=== PATIENT | male | born 1955 | race Caucasian/White ===

== ENCOUNTER → 2020-06-01 15:55 | Outpatient (CLI) | payer OTHER, SELFPAY ==
--- NOTE | ~2020-06-01 | XR_ITS ---
EXAMINATION: XR knee RT 3V DATE: 06/01/2020 17:08 INDICATION: Right knee pain. TECHNIQUE: 3 views of right knee were obtained. COMPARISON: None. FINDINGS: Bone alignment is normal. No fracture. There is mild tricompartmental osteoarthritis. There is a small knee joint effusion. A 2.6 cm curvilinear density overlies the soft tissues medial to the tibia. IMPRESSION: 1. Mild right knee osteoarthritis. 2. Small right knee joint effusion. 3. Curvilinear foreign body overlying the soft tissues medial to the tibia. Reviewed, dictated and finalized at location A. [employer]
== END ==
PROVIDERS: PCP Family Medicine; Visit Provider Physician Assistant
DX: M17.11 Unilateral primary osteoarthritis, right knee (principal); M25.461 Effusion, right knee
CPT/HCPCS: 73562

== ENCOUNTER → 2020-07-30 15:26 | Outpatient (CLI) | payer OTHER, SELFPAY ==
--- NOTE | ~2020-07-30 | MR_ITS ---
EXAMINATION: MR knee RT wo con DATE: 07/30/2020 16:09 INDICATION: Right knee pain. TECHNIQUE: Magnetic resonance imaging (MRI) of the right knee was performed without intravenous contr ast. Sequences included coronal and sagittal PD-weighted FSE and coronal, sagittal, and axial STIR FS E. COMPARISON: Right knee radiographs 06/01/2020 FINDINGS: Medial compartment: There is a radial tear of posterior root of medial meniscus. There is extensive full-thickness cartil age loss of femoral condyle involving the central, medial, lateral, and posterior articular surface w ith cortical remodeling and moderate subchondral edema-like marrow signal intensity. There is full-th ickness cartilage loss of tibial condyle involving the central and medial articular surface with subc hondral insufficiency fracture with low signal fracture line and surrounding bone marrow edema-like s ignal intensity. Marginal osteophytes are noted. Lateral compartment: Lateral meniscus is normal. There is deep cartilage fissuring of tibial condyle involving the medial articular surface with cartilage undermining. There is shallow partial-thickness cartilage loss of th e tibial central articular surface and posterior articular surface. The femoral condyle demonstrates deep partial thickness cartilage loss medially. Marginal osteophytes are noted. Patellofemoral compartment: There is full-thickness cartilage loss of patellar medial facet with mild subchondral edema-like aisha ow signal intensity. There is deep partial thickness cartilage loss of patellar lateral facet. There is deep partial thickness cartilage loss of central trochlea. Osteophytes are noted. Ligaments and tendons: The anterior and posterior cruciate ligaments are normal. Medial collateral ligament and lateral olegario ateral ligament complex are intact. There is mild patellar tendinopathy. Fluid: There is a large knee joint effusion. There is trace fluid in a Brennan's cyst. There is mild prepatell ar and superficial infrapatellar bursitis. IMPRESSION: 1. Subchondral insufficiency fracture of medial tibial condyle. 2. Severe chondrosis of medial and patellofemoral compartments and moderate chondrosis of lateral com partment. 3. Tear of medial meniscus. 4. Large knee joint effusion. Reviewed, dictated and finalized at location A. IMPRESSION: 1. Subchondral insufficiency fracture of medial tibial condyle. 2. Severe chondrosis of medial and patellofemoral compartments and moderate cho ndrosis of lateral compartment. 3. Tear of medial meniscus. 4. Large knee joint effusion.
== END ==
PROVIDERS: PCP Family Medicine; Visit Provider Orthopaedic Surgery
DX: S83.241D Other tear of medial meniscus, current injury, right knee, subsequent encounter (principal); X58.XXXD Exposure to other specified factors, subsequent encounter; M25.462 Effusion, left knee
CPT/HCPCS: 73721

== ENCOUNTER 2020-09-14 09:50 | Outpatient (CLI) | payer OTHER, SELFPAY ==
--- NOTE | 2020-09-14 10:36 | ECG_ITS ---
Measurements Intervals [place] Rate: 75 P: 8 SC: 206 QRS: 23 QRSD: 88 T: 31 QT: 371 QTc: 415 Interpretive Statements SINUS RHYTHM BASELINE ARTIFACT- I, III NORMAL ECG Electronically Signed On 09-14-2020 12:06:36 CDT by Codey Olivia D.O.
[2020-09-14 11:04] LABS: Basophils Percent Auto 0.4 % (0.2-1.2); Eosinophils Absolute Auto 0.8 K/mm3 (0-0.3); Eosinophils Percent Auto 7.5 % (0-4.4); Hematocrit 42.8 % (42.0-52.0); Hemoglobin 14.3 g/dL (14.0-18.0); Immature Granulocyte Absolute 0.04 K/mm3 (0.00-0.031); Immature Granulocyte Percent A 0.4 % (0-0.5); Lymphocytes Absolute Auto 2.34 K/mm3 (0.9-3.2); Lymphocytes Percent Auto 23.1 % (18.3-44.2); Mean Corpuscular HGB Conc 33.4 g/dl (32-36); Mean Corpuscular Hemoglobin 29.7 pg (26-34); Mean Platelet Volume 9.4 fl (7.4-10.4); Monocytes Percent Auto 9.9 % (2.6-8.5); Neutrophils Percent Auto 58.7 % (45.5-73.1); Platelet Count Result 187 k/mm3 (150-375); Red Blood Count 4.81 M/mm3 (4.6-6.20); Red Cell Distribution Width 12.5 % (11.5-14.5); White Blood Count 10.2 K/mm3 (4.5-10.0)
[2020-09-14 11:13] LABS: Albumin Level 4.3 g/dL (3.5-5.1); Estimated Glomerular Filt Rate > 60; Glucose 100 mg/dL (75-110); Hemoglobin A1C 5.8 % (<5.7)
[2020-09-14 11:15] LABS: Urine Cotinine NEGATIVE
== END 2020-09-14 09:51 | disposition home or self-care (01) ==
LOC: ANHSURGERY 09:54
PROVIDERS: PCP Family Medicine; Visit Provider Orthopaedic Surgery
DX: M17.11 Unilateral primary osteoarthritis, right knee (principal); Z01.818 Encounter for other preprocedural examination
CPT/HCPCS: 80307; 82040; 82565; 82947; 83036; 85025; 86850; 86900; 86901; 87081; 93005

== ENCOUNTER → 2020-09-24 04:42 | Outpatient (CLI) | payer OTHER, SELFPAY ==
[2020-09-24 18:46] LABS: SARS-CoV-2 RNA PCR Negative
== END ==
PROVIDERS: Physician Assistant; PCP Family Medicine; Visit Provider Orthopaedic Surgery
DX: R09.81 Nasal congestion (principal); Z20.822 Contact with and (suspected) exposure to COVID-19
CPT/HCPCS: C9803; U0003; U0005

== ENCOUNTER 2020-09-27 01:10 | Day surgery (SDC) | payer OTHER, SELFPAY ==
[2020-09-14 10:15] VITALS: BP 132/70; PULSE 76; RESP 20; TEMP 36.8; O2SAT 98; BMI 36.3
--- NOTE | 2020-09-24 15:59 | WPDANESEPPF ---
Anes - Initial Pre Proc Eval Procedure: Operation Date: 09/27/20 07:30 Proposed Procedures p Right Total Knee Arthroplasty - Patrick Perez MD Date/Time: 09/24/20 15:59 Surgeon: Patrick Perez MD Pre Op Diagnosis: right knee OA Patient Data Age: 64 Gender: M Height: 1.89 m Weight: 130.2 kg Last Vital Signs Temp 36.8 C 09/14/20 10:15 Pulse 76 09/14/20 10:15 Resp 20 09/14/20 10:15 BP 132/70 09/14/20 10:15 Pulse Ox 98 09/14/20 10:15 Allergies Allergy/AdvReac Type Severity Reaction Status Date / Time No Known Allergies Allergy Mild Verified 09/27/20 06:35 Home Medications Medication Instructions Recorded Confirmed Type atorvastatin 20 mg tablet 10 mg PO HS tablet 09/09/19 09/27/20 History ibuprofen 800 mg tablet 800 mg PO TID #90 tablet 07/21/20 09/27/20 Rx acetaminophen [Tylenol Extended 650 mg PO HS 09/14/20 09/27/20 History Release] gabapentin 300 mg QAM 09/14/20 09/27/20 History gabapentin 600 mg PO HS 09/14/20 09/27/20 History tamsulosin [Flomax] 0.4 mg PO HS 09/14/20 09/27/20 History rivaroxaban 10 mg tablet 10 mg PO DAILY #14 tablet 09/16/20 Rx tramadol 50 mg tablet 50 mg PO Q4H PRN #30 tablet 09/20/20 09/20/20 Rx ECG: Date of Service: 09/14/20 Procedure(s): CA 12 lead EKG Accession Number(s): [id number] cc: ~ Measurements Intervals [place] Rate: 75 P: 8 [place]: 206 QRS: 23 QRSD: 88 T: 31 QT: 371 QTc: 415 Interpretive Statements SINUS RHYTHM BASELINE ARTIFACT- I, III NORMAL ECG Electronically Signed On 09-14-2020 12:06:36 CDT by Codey Olivia D.O. Dictated By: Codey Olivia DO 09/14/20 1206 Patient hx anesthesia problems: none Family hx anesthesia problems: none PMFSH Past Medical History Medical History (Updated 09/24/20 @ 16:01 by Eric Castro MD) Arthritis of knee, right Chronic bilateral low back pain with left-sided sciatica Chronic low back pain Chronic pain of left knee Left shoulder pain Neuropathy REJI on CPAP Primary osteoarthritis of left knee Surgical History Surgical History History of arthroscopy of right knee meniscectomy 2005 or so History of back surgery 2017 and 2019 History of total left knee replacement S/P sinus surgery Family History Family History Mother Family history of Alzheimer's disease Family history of coronary artery disease Family history of diabetes mellitus in first degree relative Family history of heart disease in male family member before age 55 Social History Social History Smoking packs per day: 1.5 Smoking cigarettes per day: 30.0 Years smoked: 30 Smoking pack-years: 45.00 Smoking status: Former smoker Second hand tobacco smoke exposure: No Smoking end date: 04/09/98 Additional smoking assessment comments: QUIT 1998 Alcohol intake: never Drinks per week: 4 Substance use: never Substance use type: does not use Living arrangements: with family Gender identity (if verbalized by the patient): Male Spiritual care concerns: No Anes - Eval Final PreProcedure Day of Procedure 09/24/20 15:59 Patient weight: obese Heart: regular rate and rhythm Lungs: clear to auscultation and normal air movement Airway: Mallampati scale class II Neurological: alert and oriented Last oral intake: >/= 8 hours ASA classification: III Emergent: no Anesthetic plan: proceed Anesthesia type and monitoring: general LMA Informed Consent: The patient's anesthetic plan and its attendant risks and benefits were discussed with the pat
[2020-09-27] VITALS (12 sets, daily range): BP systolic 116–156; BP diastolic 58–77; PULSE 78–97; RESP 8–25; TEMP 36.1–37.1; O2SAT 93–100; BMI 36.6
--- NOTE | ~2020-09-27 | XR_ITS ---
EXAMINATION: XR knee RT 2V DATE: 09/27/2020 10:24 INDICATION: Postoperative evaluation following right total knee arthroplasty. TECHNIQUE: Anteroposterior and lateral views of the right knee were obtained. COMPARISON: Right knee radiograph dated 06/01/2020 FINDINGS: Right total knee arthroplasty with patellar resurfacing appears well seated and in near anatomic alig nment. No fractures identified. Expected postoperative subcutaneous and intra-articular gas. Entheso phytes at the proximal distal pole of the patella. IMPRESSION: 1. Right total knee arthroplasty, negative for postoperative purposes. Reviewed, dictated and finalized at location A.
--- NOTE | 2020-09-27 07:06 | WPDHPUPDATE1 ---
History and Physical Update Update Date/Time: 09/27/20 07:06 History and Physical has been reviewed, including an updated exam of the patient. There are NO changes in the patient's condition. Risks, benefits, and alternatives have been discussed and questions answered. Patient agrees to proceed with procedure.
[2020-09-27] MEDS: ACETAMINOPHEN 500 MG TABLET 1000 MG PO ×3 (07:07→21:00)
[2020-09-27] MEDS: LACTATED RINGERS 1,000 ML 30 ML IV CONT ×2 (07:15→10:08)
[2020-09-27] MEDS: TRANEXAMIC ACID 1,000MG/ISO100 1,000 MG/100 ML BAG 200 MG IVPB (07:16)
[2020-09-27] MEDS: ceFAZolin 3 GM/D5W 100 ML 100 ML IVPB (07:30)
--- NOTE | 2020-09-27 07:33 | WPDANESPNB ---
Anes - Peripheral Nerve Block Date/Time: 09/27/20 07:33 I have discussed with the patient/family/POA the placement of a peripheral nerve block for post-operative pain management, including associated risks, benefits, complications, and side effects. Alternative methods of post-operative analgesia were detailed. Questions were solicited and answers provided to the satisfaction of the patient/family/POA. Time-Out: A pre-procedural Time-Out was completed immediately before starting the procedure and confirmed: Patient Identification, Site, Procedure, Patient Position and the Availability of Requisite Equipment. Clinical Indications: Acute post-operative pain management requested by the operative surgeon. Nerve Block Insertion Note Anes-nerve block: adductor canal right Patient position: supine Skin prep: chlorhexidine Needle: 22 gauge, stimulating, insulated echogenic needle. Needle length: 80 mm Technique: ultrasound Technique comment: in plane Injectate: bupivacaine 0.5% with epi 5 mcg/ml (30cc) Observations: tolerated well Complications: none Procedure start time:: 720 Procedure end time:: 725
[2020-09-27] MEDS: BUPIVACAINE/EPINEPHRINE 0.25% 10 ML VIAL 60 ML INFILTRATE (09:10)
--- NOTE | 2020-09-27 10:06 | P.OP_ITS ---
Procedure Note - Detailed Date of Procedure 09/27/20 Pre-op Diagnosis right knee OA Post-op Diagnosis same Procedure Performed Right total knee replacement Surgeon Patrick Perez MD Instrument Sterilizer Sharon Espinoza Anesthesia general and regional Indications see H&P Findings see op note Description of Procedure The patient was identified and proper site identified. In the preop holding area the anesthesia team performed a right sub sartorial block after which the patient was taken to the operating room and transferred to the OR table positioning supine taking care to pad the torso and extremities. After general anesthetic induction and intubation a nonsterile tourniquet was placed high on the right thigh. The right lower extremity was prepped and draped in the usual sterile fashion. The extremity was exsanguinated and with the knee flexed tourniquet was inflated to 300 mmHg remaining up for approximately 78 minutes. An anterior midline incision was made and a modified medial parapatellar approach was used. Infra and suprapatellar fat pads were excised. Patella was resected leaving 18 mm thickness and prepared for the size 34 round three peg component. Using the intramedullary guide the distal femur was cut in the proper orientation for the size 72.5 femoral component. Using the extramedullary guide the tibia was cut perpendicular to the long axis protecting collateral ligaments and popliteal structures. It was sized to 83. Flexion and extension gaps were balanced. Trial reduction was undertaken and the weight- bearing line was noted to passed through the center of the joint. Proximal tibia was drilled and punched in the proper orientation for the real component. Trial components were removed. The bone surfaces were washed with pulsatile lavage and dried. The real components were cemented simultaneously. The knee was held in extension and the patella held clamped until the cement had cured. Excess cement was removed from the joint. After trialing it was determined that the 12 mm insert gave full range of motion from 0-120 degrees of flexion and the patella tracked in the femoral groove with no lift-off. After final lavage the joint the real size 12 E poly insert was placed and secured with a locking bar. A Betadine and saline wash was placed into the wound and allowed to sit for approximately 3 minutes and then evacuated. Periarticular tissues were infiltrated with 60 cc of the arthroplasty solution. Surgicel powder was used both below and above the extensor mechanism irrigating away any excess. The extensor mechanism was repaired with #2 Vicryl suture and 0 looped PDS suture. Subcu was reapproximated with three Monocryl and two of strata fix with tissue adhesive for the skin. A sterile dressing was applied. He tolerated the procedure well, was awakened and extubated, transferred to the bed and was taken to recovery area in stable condition. There were no known intraoperative complications. Perioperative antibiotics were administered. Estimated Blood Loss 200 Tourniquet Time 78 Drains No Packing No Pathology none sent Complications No immediate complications Condition stable Disposition PACU
[2020-09-27] MEDS: fentaNYL CITRATE INJ (*CRX) 100 MCG/2 ML VIAL 25 MCG IV PUSH ×3 (10:41→10:47)
--- NOTE | 2020-09-27 11:10 | PC.NURSE ---
This patient, Alfonso Chacko, was admitted to 2 Medical Room 257-01. Patient/family oriented to hospital policies and general routines including ID bracelet, bed and alarms, visiting hours, pain management, procedures, bathroom and other care routines, personal items, smoking policy, room service/diet, and visiting hours. Information on how to activate the Rapid Response Team has been discussed. Patient/Family are encouraged to report perceived risks to care and to ask questions if they do not understand what they are told or what they should do.
[2020-09-27] MEDS: KETOROLAC 15 MG/ML VIAL (*BKC) IV PUSH ×3 (12:23→23:13)
[2020-09-27] MEDS: oxyCODONE HCL (*CRX) 5 MG TAB IR PO ×3 (12:23→21:00)
[2020-09-27] MEDS: ceFAZolin 2 GM/D5W 50 ML 2 GM/50 ML BAG IVPB ×2 (15:54→23:14)
[2020-09-27] MEDS: DOCUSATE SODIUM 100 MG CAPSULE PO (17:32)
[2020-09-27] MEDS: GABAPENTIN 300 MG CAPSULE 600 MG PO (21:00)
[2020-09-27] MEDS: ATORVASTATIN 10 MG TABLET PO (21:00)
[2020-09-27] MEDS: TAMSULOSIN HCL 0.4 MG CAPSULE PO (21:00)
[2020-09-27] MEDS: FAMOTIDINE 20 MG TABLET PO (21:00)
[2020-09-27] MEDS: oxyCODONE HCL (*CRX) 2.5 MG TAB IR 7.5 MG PO (23:15)
[2020-09-28] MEDS: oxyCODONE HCL (*CRX) 5 MG TAB IR PO ×3 (01:05→07:49)
[2020-09-28 04:03] VITALS: BP 142/61; PULSE 73; RESP 16; TEMP 36.6; O2SAT 98
[2020-09-28] MEDS: ACETAMINOPHEN 500 MG TABLET 1000 MG PO (06:28)
[2020-09-28] MEDS: ceFAZolin 2 GM/D5W 50 ML 2 GM/50 ML BAG IVPB (06:28)
[2020-09-28] MEDS: oxyCODONE HCL (*CRX) 2.5 MG TAB IR 7.5 MG PO (06:31)
--- NOTE | 2020-09-28 07:35 | PM.DS ---
DS: Admitting Diagnosis Admitting Diagnosis Admitting Diagnosis: Right knee osteoarthritis DS: Discharge Diagnosis Discharge Diagnosis (1) History of right knee joint replacement: Code(s): Z96.651 - Presence of right artificial knee joint Status: Resolved Assessment and Plan: Patient going to be discharged home. He was admitted for observation after outpatient procedure and has done well postoperatively. DS: Summary Hospital Course Reason for hospitalization: Observation after outpatient procedure Hospital Course: Following the patient's surgery, he was admitted to the floor for observation. He began therapy and has done well. He is going to be discharged home. Status at Discharge Functional status at discharge: uses cane/walker Overall status at discharge: patient is not back to baseline Time Spent with Patient Time attestation: Total time spent providing and/or coordinating discharge services: Exam Const: General: cooperative, no acute distress and alert Nutritional Appearance: other Orientation/consciousness: patient oriented x3 Limitations: no limitations HENMT: Head: normal to inspection Ears: hearing grossly normal bilaterally Face and sinus: face symmetric Mouth: Yes moist mucous membranes Teeth and gingiva: fair dentition Eyes: Alignment and Position: alignment normal and position normal Sclera: sclerae normal Neck: Neck: normal visual inspection and nontender Chest: Chest palpation & inspection: normal inspection of the chest Resp: Effort & Inspection: normal respiratory effort and able to speak in complete sentences GI: Inspection: other (Nondistended) Skin: General skin exam: normal color Rashes: no rashes Neuro: General: patient oriented x3 Cognition (Neuro): normal cognition Speech: normal speech Gait exam (Neuro): Other gait observations present Extrem: General: normal to inspection and other Other: Exam of the right knee wound shows that it is well-opposed, dry. Very little swelling and no erythema. No bruising. Grossly motor and sensory function intact to right lower extremity. Calves negative. Psych: Appearance: grossly normal Mental Status: mental status grossly normal Discharge Plan Discharge Patient Disposition: Home, Self-Care Discharge Instructions: 3 times daily for 20 minutes each time, reclining in bed with ice packs over the incision and a pillow underneath the calf of the affected leg, not under the knee. Your wound is glued so it is okay to get into the shower and get the wound wet in two days. Be sure to read through all the information that came from a my office and the hospital. Most of the answers you will need can be found that material. Call the office with any questions that you cannot find answers to, or concerns you may have. After the Xarelto is completed, start taking one coated 325 mg aspirin daily and do this for four more weeks. Please call [facility] at as soon as possible to [] follow-up appointment to be seen in [] weeks. Also, call the office with any orthopedic/surgical related questions prior to follow-up. Be sure to get up and move around several times daily but do not overdo it. If you right out a medication schedule, it will be much easier to keep track of what you are supposed to be taking and when. I am sending a prescription for a medication called Celebrex home with you. You are to take this 2 times a day (every 12 hours) for the next seven days. Take the arthritis formula Tylenol 650 mg tablet on an 8 hour schedule. A good 8 hour schedule is: 6:00 a.m., 2:00 p.m., 10:00 p.m. you may take the prescribed pain medication along with the Tylenol; it is not to be taken instead of the Tylenol. I would like for you to take the Tylenol on a schedule for 2-3 weeks. Once the Xarelto is completed, if you wish to supplement your pain regimen with [id number] anti-inflammatory such as Advil or Aleve, that is fine.
[2020-09-28] MEDS: FAMOTIDINE 20 MG TABLET PO (07:49)
[2020-09-28] MEDS: DOCUSATE SODIUM 100 MG CAPSULE PO (07:49)
[2020-09-28] MEDS: RIVAROXABAN 10 MG TABLET PO (07:49)
[2020-09-28] MEDS: GABAPENTIN 300 MG CAPSULE BY MOUTH (07:49)
--- NOTE | 2020-09-28 08:47 | WPDANESPN ---
Anes - Prog Note Post-Op Date/Time: 09/28/20 08:47 Cardiovascular status: normal Respiratory status: normal Airway patency: baseline Mental status: baseline Post-Op hydration status: normal Vital Signs: Last Vital Signs Temp 36.6 C 09/28/20 04:03 Pulse 73 09/28/20 04:03 Resp 16 09/28/20 04:03 BP 142/61 H 09/28/20 04:03 Pulse Ox 98 09/28/20 04:03 Pain Score (VAS): 2 I/O: Intake & Output 09/27/20 09/28/20 09/28/20 23:59 07:59 15:59 Intake Total 830 50 Output Total 1550 700 Balance -720 -650 Post-procedural complaints: none Patient Feedback: Patient satisfied with anesthetic care.
== END 2020-09-28 09:54 | disposition home or self-care (01) ==
LOC: ANHSURGERY 06:26 → ANH2MED 11:11
PROVIDERS: PCP Family Medicine; Visit Provider Orthopaedic Surgery
PROC: (CPT 27447; principal; 2020-09-27 07:30)
DX: M17.11 Unilateral primary osteoarthritis, right knee (principal); G89.18 Other acute postprocedural pain; G47.33 Obstructive sleep apnea (adult) (pediatric); G62.9 Polyneuropathy, unspecified; M54.5 Low back pain; G89.29 Other chronic pain; Z79.01 Long term (current) use of anticoagulants; Z79.891 Long term (current) use of opiate analgesic; Z87.891 Personal history of nicotine dependence; E66.9 Obesity, unspecified; Z68.36 Body mass index [BMI] 36.0-36.9, adult
CPT/HCPCS: 27447; 64447; 73560; 80307; 82040; 82565; 82947; 83036; 85025; 86850; 86900; 86901; 87081; 93005; 97110; 97116; 97161; 97165; 97530; 97535; A9270; C1713; C1776; C9803; J0690; J1100; J1170; J1885; J2250; J2370; J2405; J2704; J3010; J7120; U0003; U0005

== ENCOUNTER → 2020-12-29 00:40 | Outpatient (CLI) | payer OTHER, SELFPAY ==
[2020-12-29 16:56] LABS: SARS-CoV-2 RNA PCR Negative
== END ==
PROVIDERS: PCP Family Medicine; Visit Provider Physician Assistant
DX: J32.9 Chronic sinusitis, unspecified (principal); Z20.822 Contact with and (suspected) exposure to COVID-19
CPT/HCPCS: C9803; U0003; U0005

== ENCOUNTER 2022-11-03 08:32 | Outpatient (CLI) | payer OTHER, SELFPAY ==
--- NOTE | ~2022-11-03 | US_ITS ---
EXAMINATION: US aorta [facility] DATE: 11/03/2022 09:04 INDICATION: Encounter for screening for cardiovascular disorder, specifically abdominal aortic aneury sm TECHNIQUE: Grayscale, color Doppler, and pulsed Doppler images of the aorta and common iliac arteries were obtained. COMPARISON: None. FINDINGS: The proximal aorta measures 2.1 cm. The mid aorta measures 2.0 cm. The distal aorta measures 1.9 cm. The right common iliac artery measures 1.2 cm. The left common iliac artery measures 1.3 cm. IMPRESSION: 1. Normal caliber abdominal aorta. Reviewed, dictated and finalized at location A.
== END 2022-11-03 08:33 | disposition home or self-care (01) ==
PROVIDERS: PCP Family Medicine; Visit Provider Family Medicine
DX: Z13.6 Encounter for screening for cardiovascular disorders (principal)
CPT/HCPCS: 76706

== ENCOUNTER 2023-02-22 02:56 | Day surgery (SDC) | payer OTHER, SELFPAY ==
[2023-02-08 11:05] VITALS: BMI 38.9
--- NOTE | 2023-02-20 10:28 | SUR.PREOP ---
Patient called regarding upcoming procedure. Reviewed preop instructions, appointment times, and procedure prep.
[2023-02-22 10:01] VITALS: BP 136/70; PULSE 69; RESP 18; TEMP 36.2; O2SAT 98
--- NOTE | 2023-02-22 10:02 | PM.HPGS ---
History of Present Illness History of Present Illness Consent: Risks, benefits, and alternatives have been discussed and questions answered. Patient agrees to proceed with procedure. Chief complaint: family hx of colon cancer Narrative: Alfonso Chacko is a 67 year old male Presents for screening colonoscopy. Patient's family history is significant that his half-brother had colon cancer. Patient himself had polyps many years ago. His most recent colonoscopy 5 years ago was unremarkable. Patient presents today for surveillance screening colonoscopy. Patient's weight appetite and bowel movements are normal. He denies abdominal pain. He has had no bleeding. Review of Systems Review of Systems: Review of systems noncontributory. [facility] Past Medical History Medical History Arthritis of knee, right Chronic bilateral low back pain with left-sided sciatica Chronic low back pain Chronic pain of left knee Left shoulder pain Neuropathy REJI on CPAP Osteoarthritis of left shoulder Primary osteoarthritis of left knee Surgical History Surgical History History of arthroscopy of right knee meniscectomy 2005 or so History of back surgery 2016 and 2018 History of bilateral knee replacement Right 09/27/20 Left 09/27/18 Sada S/P sinus surgery Family History Family History Mother Family history of Alzheimer's disease Family history of coronary artery disease Family history of diabetes mellitus in first degree relative Family history of heart disease in male family member before age 55 Social History Social History Smoking packs per day: 2 Smoking cigarettes per day: 40.0 Years smoked: 35 Smoking pack-years: 70.00 Smoking status: Former smoker Tobacco type: cigarettes Second hand tobacco smoke exposure: No Smoking end date: 04/09/98 Additional smoking assessment comments: QUIT 1998 Alcohol intake: current Drinks per week: 3 Substance use: never Substance use type: does not use Current Housing: Decline to Answer Concerned About Future Housing: Decline to Answer Difficulty Paying Gas/Electric Bills: Decline to Answer Difficulty Paying for Meds: Decline to Answer Currently Unemployed: Decline to Answer Education: Decline to Answer Difficulty w/ Childcare or Family Care: Decline to Answer Living arrangements: with family Occupation/Education: retired Gender identity (if verbalized by the patient): Male Sexual Orientation (if Verbalized by the Patient): Straight or Heterosexual Spiritual care concerns: No Meds Home Medications and Allergies Home Medications Medication Instructions Recorded Confirmed Type atorvastatin 20 mg tablet 10 mg PO HS 09/09/19 02/08/23 History ibuprofen 800 mg tablet See Rx Instructions .Route 11/27/22 02/08/23 Rx .COMPLEX #90 tabs gabapentin 300 mg capsule 300 mg PO TID #270 caps 12/20/22 02/22/23 Rx methocarbamol 750 mg tablet 750 mg PO QID PRN Muscle Pain 02/08/23 02/22/23 History tamsulosin 0.4 mg capsule 0.4 mg PO HS 02/08/23 02/08/23 History Allergies Allergy/AdvReac Type Severity Reaction Status Date / Time No Known Allergies Allergy Mild Verified 02/22/23 09:57 Exam Narrative: Physical exam reveals patient to be alert. Vital signs stable. HEENT exam is unremarkable. Patient is anicteric. Lungs are clear to auscultation and percussion. Heart is without murmur or extra sounds. Abdomen bowel sounds are present soft nontender with no organomegaly. Digital external rectal exam normal. Assessment and Plan Assessment and plan (1) History of colon polyps: Code(s): Z86.010 - Personal history of colonic polyps Status: Acute Assessment and Plan: Patient has a distant history of c
[2023-02-22] MEDS: LACTATED RINGERS 1,000 ML 150 ML IV CONT (10:08)
--- NOTE | 2023-02-22 10:15 | WPDANESEPPF ---
Anes - Initial Pre Proc Eval Procedure: Operation Date: 02/22/23 11:00 Proposed Procedures p Colonoscopy - Ray Heller MD Date/Time: 02/22/23 10:15 Surgeon: Ray Heller MD Pre Op Diagnosis: family hx of colon cancer Patient Data Age: 67 Gender: M Height: 1.85 m Weight: 128.6 kg Last Vital Signs Temp 97.2 F L 02/22/23 10:01 Pulse 69 02/22/23 10:01 Resp 18 02/22/23 10:01 BP 136/70 02/22/23 10:01 Pulse Ox 98 02/22/23 10:01 O2 Del Method Room Air 02/22/23 10:01 Allergies Allergy/AdvReac Type Severity Reaction Status Date / Time No Known Allergies Allergy Mild Verified 02/22/23 09:57 Home Medications Medication Instructions Recorded Confirmed Type atorvastatin 20 mg tablet 10 mg PO HS 09/09/19 02/08/23 History ibuprofen 800 mg tablet See Rx Instructions .Route 11/27/22 02/08/23 Rx .COMPLEX #90 tabs gabapentin 300 mg capsule 300 mg PO TID #270 caps 12/20/22 02/22/23 Rx methocarbamol 750 mg tablet 750 mg PO QID PRN Muscle Pain 02/08/23 02/22/23 History tamsulosin 0.4 mg capsule 0.4 mg PO HS 02/08/23 02/08/23 History Patient hx anesthesia problems: none Family hx anesthesia problems: none Results Review: All pre-operative results and documents have been reviewed as part of the pre-operative evaluation. 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 Chronic low back pain Chronic pain of left knee Left shoulder pain Neuropathy REJI on CPAP Osteoarthritis of left shoulder Primary osteoarthritis of left knee Surgical History Surgical History History of arthroscopy of right knee meniscectomy 2005 or so History of back surgery 2017 and 2019 History of bilateral knee replacement Right 09/27/20 Left 09/27/18 Sada S/P sinus surgery Family History Family History Mother Family history of Alzheimer's disease Family history of coronary artery disease Family history of diabetes mellitus in first degree relative Family history of heart disease in male family member before age 55 Social History Social History Smoking packs per day: 2 Smoking cigarettes per day: 40.0 Years smoked: 35 Smoking pack-years: 70.00 Smoking status: Former smoker Tobacco type: cigarettes Second hand tobacco smoke exposure: No Smoking end date: 04/09/98 Additional smoking assessment comments: QUIT 1998 Alcohol intake: current Drinks per week: 3 Substance use: never Substance use type: does not use Current Housing: Decline to Answer Concerned About Future Housing: Decline to Answer Difficulty Paying Gas/Electric Bills: Decline to Answer Difficulty Paying for Meds: Decline to Answer Currently Unemployed: Decline to Answer Education: Decline to Answer Difficulty w/ Childcare or Family Care: Decline to Answer Living arrangements: with family Occupation/Education: retired Gender identity (if verbalized by the patient): Male Sexual Orientation (if Verbalized by the Patient): Straight or Heterosexual Spiritual care concerns: No Anes - Eval Final PreProcedure Day of Procedure 02/22/23 10:15 Patient weight: obese Heart: regular rate and rhythm Lungs: clear to auscultation Airway: Mallampati scale class II Neurological: alert and oriented Last oral intake: >/= 8 hours ASA classification: III Emergent: no Anesthetic plan: proceed Anesthesia type and monitoring: general GIVS and standard monitoring Results Review: All pre-operative results and documents have been reviewed as part of the pre-operative evaluation. Informed Consent: The patient's anesthetic plan and its attendant risks and benefits were discussed with the patient/family/POA. Question
[2023-02-22] MEDS: SIMETHICONE ORAL SUSPENSION 20 MG/0.3 ML 30 ML BOTTLE 0.6 ML IRRIGATION (10:25)
[2023-02-22 10:34] VITALS: BP 120/71; PULSE 69; RESP 20; O2SAT 97
[2023-02-22 10:44] VITALS: BP 133/70; PULSE 72; RESP 19; O2SAT 99
[2023-02-22 10:54] VITALS: BP 128/74; PULSE 78; RESP 20; O2SAT 99
== END 2023-02-22 11:06 | disposition home or self-care (01) ==
PROVIDERS: PCP Family Medicine; Visit Provider Internal Medicine Gastroenterology
PROC: 0DJD8ZZ Inspection of Lower Intestinal Tract, Via Natural or Artificial Opening Endoscopic (ICD-10-PCS; CPT 45378; principal; 2023-02-22 11:00)
DX: Z12.11 Encounter for screening for malignant neoplasm of colon (principal); K63.5 Polyp of colon; K64.8 Other hemorrhoids; M54.42 Lumbago with sciatica, left side; M17.12 Unilateral primary osteoarthritis, left knee; M19.012 Primary osteoarthritis, left shoulder; G47.33 Obstructive sleep apnea (adult) (pediatric); E66.9 Obesity, unspecified; Z68.37 Body mass index [BMI] 37.0-37.9, adult; Z99.89 Dependence on other enabling machines and devices; Z79.1 Long term (current) use of non-steroidal anti-inflammatories (NSAID); Z79.899 Other long term (current) drug therapy; F10.90 Alcohol use, unspecified, uncomplicated; Z87.891 Personal history of nicotine dependence; Z80.0 Family history of malignant neoplasm of digestive organs
CPT/HCPCS: 45380; 88305; J2704; J7120